=== PATIENT | male | born 1985 | race Hispanic/Latino ===

== ENCOUNTER 2023-05-10 19:49 | Observation (INO) | payer BC, OTHER ==
[~2023-05-10] VITALS: Ht 167.6 cm; Wt 113.4 kg
[2023-05-10] MEDS ORDERED: OCTREOTIDE ACETATE 1,250 MCG in DEXTROSE 5%-WATER 250 ML IV SCH (22:00)
[2023-05-10] MEDS ORDERED: ONDANSETRON 4MG INJ IVP ONE (22:00)
[2023-05-10] MEDS ORDERED: PANTOPRAZOLE 40 MG/VIAL IVP ONE (22:00)
[2023-05-10] MEDS ORDERED: OCTREOTIDE ACETATE 100 MCG/ML AMP IVP ONE (22:00)
[2023-05-10] MEDS ORDERED: 0.9%NACL 1000ML 1,000 ML IV ONE (22:00)
[2023-05-10 22:03] LABS: BASOPHILS # (AUTO) 0.07 K/uL (0.00-0.20); BASOPHILS % (AUTO) 0.5 % (0.0-5.0); EOSINOPHILS # (AUTO) 0.03 K/uL (0.00-0.70); EOSINOPHILS % (AUTO) 0.2 % (0.0-8.0); HEMATOCRIT 40.8 % (42-54); IMMATURE GRANULOCYTE ABSOLUTE 0.16 K/uL (0-1); LYMPHOCYTES # (AUTO) 1.9 K/uL (1.0-4.8); LYMPHOCYTES % (AUTO) 13.2 % (21.0-51.0); MEAN CORPUSCULAR HEMOGLOBIN 30.1 pg (27.0-33.0); MEAN CORPUSCULAR HGB CONC 35.5 g/dL (32.0-36.0); MEAN CORPUSCULAR VOLUME 84.6 fL (79-99); MONOCYTES # (AUTO) 0.9 K/uL (0.1-1.0); MONOCYTES % (AUTO) 6.2 % (3.0-13.0); NEUTROPHILS # (AUTO) 11.3 K/uL (1.8-7.7); NEUTROPHILS % (AUTO) 78.8 % (40.0-77.0); PLATELET COUNT (AUTO) 200 K/uL (130-400); RED BLOOD CELL COUNT(AUTO) 4.82 MIL/uL (4.50-6.20); RED CELL DISTRIBUTION WIDTH 13.1 % (11.0-15.5); WHITE BLOOD COUNT (AUTO) 14.4 K/uL (4.8-10.8)
[2023-05-10 22:12] LABS: CREATININE 1.6 mg/dL (0.5-1.5); POTASSIUM 3.6 mmol/L (3.5-5.1)
[2023-05-10 22:14] LABS: INR 0.98 (0.85-1.15); PROTHROMBIN TIME 11.4 SEC (9.6-11.6)
[2023-05-10 22:16] LABS: PARTIAL THROMBOPLASTIN TIME 23.2 SEC (26.3-35.5)
[2023-05-10 22:17] LABS: ALBUMIN 3.4 g/dL (3.5-5.0); BILIRUBIN,TOTAL 1.5 mg/dL (0.2-1.0); TOTAL PROTEIN, SERUM 7.5 g/dL (6.0-8.3)
[2023-05-10] MEDS ORDERED: IOHEXOL 350 MG/ML 100ML INFUS..BTL IV ONE (22:29)
[2023-05-10] MEDS ORDERED: LORAZEPAM 2 MG/ML 1 ML VIAL IVP ONE (22:30)
[2023-05-10 23:25] LABS: APPEARANCE,URINE CLEAR (CLEAR); BILIRUBIN,URINE NEGATIVE (NEGATIVE); COLOR,URINE LIGHT-YELLOW (YELLOW); GLUCOSE, URINE (UA) NEGATIVE (NEGATIVE); KETONES,URINE 10 mg/dL (NEGATIVE); LEUKOCYTE ESTERASE ,URINE NEGATIVE Leu/uL (NEGATIVE); NITRATE,URINE NEGATIVE (NEGATIVE); OCCULT BLOOD,URINE NEGATIVE (NEGATIVE); PH,URINE 5.5 (5.0-8.0); PROTEIN,URINE 10 mg/dL (NEGATIVE); UROBILINOGEN,URINE 0.2 mg/dL (0.2-1.0)
[2023-05-10 23:28] LABS: ADD UA MICROSCOPIC YES
[2023-05-10 23:30] LABS: MUCUS,URINE RARE LPF (None Seen); WBC,URINE 0-1 /HPF (0-1)
[2023-05-11] MEDS ORDERED: CEFTRIAXONE 1G VIAL IVPB ONE (01:30)
[2023-05-11] MEDS ORDERED: ONDANSETRON 4MG INJ IV PRN (02:00)
[2023-05-11] MEDS ORDERED: LACTULOSE 20 GM/30 ML UDCUP PO PRN (02:00)
[2023-05-11] MEDS ORDERED: OCTREOTIDE ACETATE 1,250 MCG in 0.9% NACL 250ML 250 ML IV SCH (02:00)
[2023-05-11] MEDS ORDERED: ACETAMINOPHEN 325 MG TAB PO PRN (02:00)
[2023-05-11 02:19] LABS: AMPHET/METH SCREEN,URINE NEGATIVE (NEGATIVE); BARBITURATE SCREEN, URINE NEGATIVE (NEGATIVE); BENZODIAZEPINES SCREEN,URINE NEGATIVE (NEGATIVE); CANNABINOID SCREEN,URINE POSITIVE (NEGATIVE); COCAINE SCREEN,URINE NEGATIVE (NEGATIVE); OPIATE SCREEN,URINE NEGATIVE (NEGATIVE); PHENCYCLIDINE SCREEN,URINE NEGATIVE (NEGATIVE)
[2023-05-11] MEDS ORDERED: PHARMACY COMMUNICATION MISC PRN (02:30)
[2023-05-11] MEDS ORDERED: LORAZEPAM 2 MG/ML 1 ML VIAL IVP PRN (02:30)
[2023-05-11] MEDS ORDERED: CHLORDIAZEPOXIDE HCL 25 MG CAP PO PRN (02:30)
[2023-05-11] MEDS ORDERED: PANTOPRAZOLE 40 MG/VIAL ONE ×2 (03:37→12:06)
[2023-05-11] MEDS: 0.9%NACL 1000ML 1,000 ML IV SCH ×2 (03:50→12:36)
[2023-05-11] MEDS: PANTOPRAZOLE 40MG INJ 80 MG in 0.9%NACL 100ML 100 ML IVP SCH ×2 (03:50→12:10)
[2023-05-11 04:19] LABS: HEMATOCRIT 35.9 % (42-54)
[2023-05-11 09:28] LABS: BASOPHILS # (AUTO) 0.04 K/uL (0.00-0.20); BASOPHILS % (AUTO) 0.4 % (0.0-5.0); EOSINOPHILS # (AUTO) 0.04 K/uL (0.00-0.70); EOSINOPHILS % (AUTO) 0.4 % (0.0-8.0); HEMATOCRIT 35.3 % (42-54); IMMATURE GRANULOCYTE ABSOLUTE 0.05 K/uL (0-1); LYMPHOCYTES % (AUTO) 20.1 % (21.0-51.0); MEAN CORPUSCULAR HGB CONC 34.6 g/dL (32.0-36.0); MEAN CORPUSCULAR VOLUME 86.7 fL (79-99); MONOCYTES % (AUTO) 10.5 % (3.0-13.0); NEUTROPHILS # (AUTO) 6.7 K/uL (1.8-7.7); NEUTROPHILS % (AUTO) 68.1 % (40.0-77.0); PLATELET COUNT (AUTO) 158 K/uL (130-400); RED BLOOD CELL COUNT(AUTO) 4.07 MIL/uL (4.50-6.20); RED CELL DISTRIBUTION WIDTH 13.5 % (11.0-15.5); WHITE BLOOD COUNT (AUTO) 9.8 K/uL (4.8-10.8)
[2023-05-11 09:38] LABS: CREATININE 1.3 mg/dL (0.5-1.5)
[2023-05-11 09:43] LABS: BILIRUBIN,TOTAL 0.9 mg/dL (0.2-1.0); TOTAL PROTEIN, SERUM 6.5 g/dL (6.0-8.3)
[2023-05-11] MEDS: THIAMINE HCL 100 MG, FOLIC ACID 1 MG, M.V.I. IV [ADULT] 10 ML in 0.9%NACL 1000ML 1,000 ML IV SCH (10:03)
[2023-05-11 15:45] VITALS: BP 144/93; PULSE 96; RESP 21
[2023-05-11] MEDS ORDERED: MONT-39 PO (16:45)
[2023-05-11] MEDS ORDERED: LISI40TA9 PO (16:56)
[2023-05-11] MEDS ORDERED: BUSP10TA3 PO (16:56)
[2023-05-11] MEDS ORDERED: ATOR40TA71 PO (16:56)
[2023-05-11] MEDS ORDERED: AMLO-257 PO (16:56)
[2023-05-11] MEDS ORDERED: PANT40TA54 PO (16:56)
[2023-05-11] MEDS ORDERED: CARV12.511 PO (16:56)
[2023-05-11 18:47] VITALS: O2SAT 99
[2023-05-11] MEDS ORDERED: TRAZ-185 PO (19:49)
[2023-05-11 19:51] VITALS: BP 138/87; PULSE 98; RESP 19
[2023-05-11 20:00] VITALS: O2SAT 99
[2023-05-11 23:43] VITALS: BP 137/85; PULSE 90; RESP 18
[2023-05-12] VITALS (25 sets, daily range): BP systolic 117–142; BP diastolic 65–88; PULSE 81–99; RESP 15–21; O2SAT 100
[2023-05-12] MEDS: 0.9%NACL 1000ML 1,000 ML IV SCH ×3 (01:17→18:00)
[2023-05-12 05:11] LABS: BASOPHILS # (AUTO) 0.04 K/uL (0.00-0.20); BASOPHILS % (AUTO) 0.6 % (0.0-5.0); EOSINOPHILS # (AUTO) 0.13 K/uL (0.00-0.70); EOSINOPHILS % (AUTO) 1.8 % (0.0-8.0); HEMATOCRIT 30.7 % (42-54); IMMATURE GRANULOCYTE ABSOLUTE 0.09 K/uL (0-1); LYMPHOCYTES # (AUTO) 2.3 K/uL (1.0-4.8); MEAN CORPUSCULAR HEMOGLOBIN 30.7 pg (27.0-33.0); MEAN CORPUSCULAR HGB CONC 34.9 g/dL (32.0-36.0); MONOCYTES # (AUTO) 0.7 K/uL (0.1-1.0); MONOCYTES % (AUTO) 9.6 % (3.0-13.0); NEUTROPHILS # (AUTO) 3.9 K/uL (1.8-7.7); NEUTROPHILS % (AUTO) 54.7 % (40.0-77.0); PLATELET COUNT (AUTO) 148 K/uL (130-400); RED BLOOD CELL COUNT(AUTO) 3.49 MIL/uL (4.50-6.20); RED CELL DISTRIBUTION WIDTH 13.5 % (11.0-15.5); WHITE BLOOD COUNT (AUTO) 7.1 K/uL (4.8-10.8)
[2023-05-12 05:34] LABS: ALBUMIN 2.9 g/dL (3.5-5.0); BILIRUBIN,TOTAL 0.7 mg/dL (0.2-1.0); CREATININE 1.1 mg/dL (0.5-1.5); POTASSIUM 3.5 mmol/L (3.5-5.1); TOTAL PROTEIN, SERUM 6.3 g/dL (6.0-8.3)
[2023-05-12 05:41] LABS: HEMOGLOBIN A1C 5.3 % (4.0-6.0)
[2023-05-12] MEDS: PANTOPRAZOLE 40MG INJ 80 MG in 0.9%NACL 100ML 100 ML IVP SCH ×3 (08:00→18:00)
[2023-05-12] MEDS ORDERED: COMPOUND IV REFRIGERATED 1 EACH IVSOLN MISC PRN (09:00)
[2023-05-12] MEDS ORDERED: PROPOFOL 10 MG/ML 20ML VIAL IV ONE (12:06)
[2023-05-12] MEDS ORDERED: LIDOCAINE HCL 400MG/20ML VIAL ONE (12:07)
[2023-05-12] MEDS: THIAMINE HCL 100 MG, FOLIC ACID 1 MG, M.V.I. IV [ADULT] 10 ML in 0.9%NACL 1000ML 1,000 ML IV SCH (14:33)
== END 2023-05-12 19:50 | disposition home or self-care (01) ==
LOC: EDH 19:49 → INTOOBSV 05-11 01:33 → EDHIP 05-11 01:33 → 3AH 05-11 15:45
PROVIDERS: ADMIT Hospitalist; ATTEND Hospitalist
DX: K74.60 Unspecified cirrhosis of liver (principal); K92.0 Hematemesis; K29.00 Acute gastritis without bleeding; N17.0 Acute kidney failure with tubular necrosis; G47.30 Sleep apnea, unspecified; I10 Essential (primary) hypertension; E78.5 Hyperlipidemia, unspecified; E78.00 Pure hypercholesterolemia, unspecified; E66.01 Morbid (severe) obesity due to excess calories; F17.290 Nicotine dependence, other tobacco product, uncomplicated; K76.6 Portal hypertension; K31.89 Other diseases of stomach and duodenum; K76.0 Fatty (change of) liver, not elsewhere classified; F41.9 Anxiety disorder, unspecified; F12.90 Cannabis use, unspecified, uncomplicated; Z68.41 Body mass index [BMI] 40.0-44.9, adult; Z79.899 Other long term (current) drug therapy
CPT/HCPCS: 96376; 96375; 84484; 80053 ×3; 85025 ×3; 85610; 85730; 86850; 86900; 86901; 81001; 36415 ×3; 74177; 99291; 93005; 96365; 96366 ×2; 96367; 96368; 80305; 85014 ×2; 85018 ×2; 96361; 83036; 43239; J7030 ×5; J7060; J2405; J2060; J2354 ×2; C9113 ×3; Q9967; J0696; J3411 ×2; J3490 ×3; G0378 ×3; J2704; A4620; A4215; A4223; A4657; A7002; A4222; A4216; A4606; J7050